=== PATIENT | female | born 1945 | race Caucasian/White ===

== ENCOUNTER → 2017-03-20 | Outpatient (CLI) | payer OTHER ==
[~2017-03-20] MED LIST: ASPIRIN81 M2 PO; CALCIUM +D & M1 EAC1 PO; CRESTOR20 MG PO; EVISTA; FISH OIL 1,0001 EAC7 PO; GLUCOPHAGE1000 MG PO; GLUCOSAMINE1000 MG PO; LOTREL 5-20 MG1 EACH PO; MULTIVITAMINS1 EAC7; NORCO 5-325 TA1 EACH PO; TAMSULOSIN HCL0.4 MG PO; VITAMIN D400 UNI1 PO; ZOFRAN4 MG PO
== END ==
LOC: RAD 02:46 → BC 09:48 → RAD 15:19
DX: Z12.31 Encounter for screening mammogram for malignant neoplasm of breast (principal)

== ENCOUNTER → 2018-05-02 | Outpatient (CLI) | payer OTHER | LOC: RAD 05-01 12:11 | DX: Z12.31 Encounter for screening mammogram for malignant neoplasm of breast (principal); E11.9 Type 2 diabetes mellitus without complications; I10 Essential (primary) hypertension; E78.00 Pure hypercholesterolemia, unspecified ==

== ENCOUNTER → 2019-06-04 | Outpatient (CLI) | payer OTHER, MEDICARE | LOC: RAD 01:28 | DX: Z12.31 Encounter for screening mammogram for malignant neoplasm of breast (principal) ==

== ENCOUNTER → 2020-06-09 | Outpatient (CLI) | payer OTHER, MEDICARE | LOC: BC 08:39 | PROVIDERS: ATTEND Family Medicine | DX: Z12.31 Encounter for screening mammogram for malignant neoplasm of breast (principal) ==

== ENCOUNTER → 2021-08-03 | Outpatient (CLI) | payer OTHER | LOC: BC 10:40 | PROVIDERS: ATTEND Family Medicine | DX: Z12.31 Encounter for screening mammogram for malignant neoplasm of breast (principal); N64.89 Other specified disorders of breast ==

== ENCOUNTER → 2021-08-05 | Outpatient (CLI) | payer OTHER | LOC: RAD 09:12 | PROVIDERS: ATTEND Family Medicine | DX: R92.1 Mammographic calcification found on diagnostic imaging of breast (principal) ==